=== PATIENT | female | born 1935 | race Caucasian/White ===

== ENCOUNTER 2017-06-08 10:37 | Emergency (ER) | payer MEDICARE ==
[~2017-06-08] VITALS: Ht 157.5 cm; Wt 63.6 kg
[~2017-06-08 10:37] MED LIST: ALEVE 220MG220 MG PO; ASPIRIN 32325 MG/TAB PO; BENADRYL 1%-0.11 CRE TP; CEPACOL SORE TH1 LO8 MM; CLARITIN 1010 MG/TAB PO; COLACE 100100 MG/CAP PO; COMBIVENT INH14.7 GM IH; CRANBERRY FRUI405 MG PO; EXFORGE HCT 101 TA2 PO; FOSAMAX 70MG TA70 MG PO; LEXAPRO 5MG5 MG PO; NORVASC 5MG5 MG/TAB PO; ORAJEL10% MM; PREDNISONE20 MG PO; PRILOSEC 20MG20 MG PO; PROAIR HFA0.09 MG/AC IH; RESTORIL 1515 MG/CAP PO; RT ADVAIR 528 DISKUS IH; RT SPIRIVA18 MCG IH; ULTRAM 50MG TAB50 MG PO; VITAMIN D2000 I1 PO; ZOCOR 40MG40 MG PO
[2017-06-08 12:31] LABS: BASO # 0.1 (0.0-0.2); BASO % 0.7 % (0.0-2.0); EOS # 0.1 (0.0-0.7); EOS % 1.7 % (0-4.0); GRAN # 5.9 (1.4-6.5); GRAN % 79.7 % (42.2-75.2); HEMATOCRIT 39.6 % (37.0-47.0); HEMOGLOBIN 12.5 g/dl (12.5-16.0); LYMPH # 0.6 (1.2-3.4); LYMPH % 8.5 % (20.0-51.0); MEAN CELL VOLUME 96 fl (80.0-100.0); MEAN CORPUSCULAR HEMOGLOBIN 30 pg (27.0-31.0); MEAN CORPUSCULAR HGB CONC 32 g/dl (33.0-37.0); MEAN PLATELET VOLUME 10.2 fl (7.4-10.4); MONO # 0.6 (0.1-0.6); MONO % 8.6 % (1.7-9.3); PLATELET COUNT 244 K/mm3 (130-400); RED BLOOD COUNT 4.14 M/mm3 (4.10-5.30); WHITE BLOOD COUNT 7.5 K/mm3 (4.8-10.8)
[2017-06-08 12:42] LABS: ADJUSTED CALCIUM 9.2 mg/dL (8.4-10.2); ALANINE AMINOTRANSFERASE 37 U/L (9-52); ALBUMIN 3.8 gm/dL (3.5-5.0); ALKALINE PHOSPHATASE 94 U/L (50-136); ANION GAP 12 mmol/L (7-16); BILIRUBIN,TOTAL 0.6 mg/dL (0.0-1.0); BLOOD UREA NITROGEN 7 mg/dL (7-17); CARBON DIOXIDE 32 mmol/L (22-30); CHLORIDE 97 mmol/L (98-107); CREATININE, serum 0.68 mg/dL (0.52-1.25); GLUCOSE 124 mg/dL (74-106); POTASSIUM 3.1 mmol/L (3.4-5.0); SODIUM 141 mmol/L (137-145); TOTAL PROTEIN 7.3 gm/dL (6.4-8.2)
[2017-06-08 12:44] LABS: INFLUENZA A NEGATIVE; INFLUENZA B NEGATIVE
[2017-06-08 12:57] LABS: B-TYPE NATRIURETIC PEPTIDE 143 pg/mL (0-450); TROPONIN-I < 0.012 ng/mL (0.000-0.034)
[2017-06-08] MEDS ORDERED: PREDNISONE20 MG PO (14:08)
[2017-06-08] MEDS ORDERED: ZITHROMAX 250M250 MG PO (14:08)
[2017-06-08 14:22] VITALS: BP 142/78; PULSE 88; TEMP 98
== END 2017-06-08 14:32 | disposition home or self-care (01) ==
LOC: COL.ER 10:37
PROVIDERS: Emergency Medicine
DX: J44.1 Chronic obstructive pulmonary disease with (acute) exacerbation (principal); I10 Essential (primary) hypertension; Z85.118 Personal history of other malignant neoplasm of bronchus and lung; Z87.891 Personal history of nicotine dependence; Z79.82 Long term (current) use of aspirin
CPT/HCPCS: J7512

== ENCOUNTER → 2017-11-10 | Outpatient (CLI) | payer MEDICARE ==
[~2017-11-10] VITALS: Ht 157.5 cm; Wt 64.8 kg
[2017-11-10] VITALS (11 sets, daily range): BP systolic 100–155; BP diastolic 55–85; PULSE 70–86
[~2017-11-10] MED LIST changes: +FLEXERIL5 MG PO; +ZITHROMAX 250M250 MG PO
[2017-11-10 10:00] LABS: INR 0.9 (0.8-3.0); PROTHROMBIN TIME 10.5 SECONDS (9.7-12.8)
== END ==
LOC: COL.RAD 09:17
PROVIDERS: Internal Medicine
DX: K76.89 Other specified diseases of liver (principal); J44.9 Chronic obstructive pulmonary disease, unspecified; Z85.118 Personal history of other malignant neoplasm of bronchus and lung; Z79.01 Long term (current) use of anticoagulants

== ENCOUNTER 2017-12-01 10:43 | Inpatient (IN) | payer MEDICARE ==
[~2017-12-01] VITALS: Ht 157.5 cm; Wt 64.0 kg
[2017-12-01 11:13] LABS: BASO # 0.1 (0.0-0.2); BASO % 0.5 % (0.0-2.0); EOS # 0.1 (0.0-0.7); EOS % 0.8 % (0-4.0); GRAN # 10.9 (1.4-6.5); GRAN % 83.2 % (42.2-75.2); HEMATOCRIT 35.9 % (37.0-47.0); HEMOGLOBIN 10.9 g/dl (12.5-16.0); LYMPH # 0.8 (1.2-3.4); LYMPH % 6.2 % (20.0-51.0); MEAN CELL VOLUME 92 fl (80.0-100.0); MEAN CORPUSCULAR HEMOGLOBIN 28 pg (27.0-31.0); MEAN CORPUSCULAR HGB CONC 30 g/dl (33.0-37.0); MEAN PLATELET VOLUME 9.5 fl (7.4-10.4); MONO # 1.2 (0.1-0.6); MONO % 8.9 % (1.7-9.3); PLATELET COUNT 278 K/mm3 (130-400); RED BLOOD COUNT 3.89 M/mm3 (4.10-5.30); REDCELL DISTRIBUTION WIDTH-CV 16.1 % (11.5-14.5)
[2017-12-01 11:22] LABS: ALBUMIN 3.5 gm/dL (3.5-5.0); BILIRUBIN,TOTAL 0.6 mg/dL (0.0-1.0); CALCIUM 8.9 mg/dL (8.4-10.2); CREATININE, serum 0.68 mg/dL (0.52-1.25); TOTAL PROTEIN 6.7 gm/dL (6.4-8.2)
[2017-12-01] MEDS ORDERED: VENTOLIN0.09 MG INH (11:25)
[2017-12-01 11:28] LABS: ARTERIAL BLD GAS TCO2 CT 34.8; ARTERIAL BLOOD GAS BASE EXCESS 6.9 (-2-2); ARTERIAL BLOOD GAS HCO3 33.2 meq/L (22-26); ARTERIAL BLOOD GAS PCO2 54.5 mmHg (35-45); ARTERIAL BLOOD GAS PO2 69.3 mmHg (80-100)
[2017-12-01] MEDS ORDERED: TYLENOL 325MG325 MG PO (11:29)
[2017-12-01 11:35] LABS: TROPONIN-I 0.026 ng/mL (0.000-0.034)
[2017-12-01 14:58] VITALS: BP 128/62; PULSE 94; TEMP 98.1
[2017-12-01 19:24] VITALS: BP 123/45; PULSE 91; TEMP 98.1
[2017-12-01 23:53] VITALS: BP 128/50; PULSE 88; TEMP 97.9
[2017-12-02 04:20] VITALS: BP 126/49; PULSE 84; TEMP 97.7
[2017-12-02 06:44] LABS: HEMOGLOBIN 10.1 g/dl (12.5-16.0); MEAN CELL VOLUME 93 fl (80.0-100.0); MEAN CORPUSCULAR HEMOGLOBIN 29 pg (27.0-31.0); MEAN CORPUSCULAR HGB CONC 31 g/dl (33.0-37.0); MEAN PLATELET VOLUME 10.3 fl (7.4-10.4); PLATELET COUNT 234 K/mm3 (130-400); RED BLOOD COUNT 3.54 M/mm3 (4.10-5.30); REDCELL DISTRIBUTION WIDTH-CV 15.9 % (11.5-14.5)
[2017-12-02 06:49] LABS: HEMATOCRIT 32.9 % (37.0-47.0)
[2017-12-02 06:54] LABS: CALCIUM 8.4 mg/dL (8.4-10.2); CREATININE, serum 0.63 mg/dL (0.52-1.25); POTASSIUM 3.5 mmol/L (3.4-5.0)
[2017-12-02 07:53] VITALS: BP 136/54; PULSE 91; TEMP 98.2
[2017-12-02 07:55] LABS: BAND 19 % (0-10); LYMPHOCYTE 4 % (20.0-51.0); NEUTROPHILS 76 % (42.0-75.2)
[2017-12-02 07:58] LABS: HYPOCHROMIA 3+; PLATELET ESTIMATE NORMAL (NORMAL)
[2017-12-02 11:33] VITALS: BP 113/52; PULSE 93; TEMP 98.1
[2017-12-02] MEDS ORDERED: DOXYCYCLINE 10100 MG PO (12:09)
[2017-12-02] MEDS ORDERED: PREDNISONE10 MG PO (12:10)
[2017-12-02 15:20] VITALS: BP 128/47; PULSE 98; TEMP 98.2
== END 2017-12-02 16:30 | disposition home or self-care (01) | DRG 191 ==
LOC: COL.ER 10:43 → MEDICAL 13:02
PROVIDERS: Emergency Medicine; Physician Assistant
DX: J44.1 Chronic obstructive pulmonary disease with (acute) exacerbation (principal); C78.7 Secondary malignant neoplasm of liver and intrahepatic bile duct; C34.31 Malignant neoplasm of lower lobe, right bronchus or lung; I10 Essential (primary) hypertension; Z87.891 Personal history of nicotine dependence
CPT/HCPCS: J0456; J0696; J1650; J2930; J7030; J7050

== ENCOUNTER 2018-03-04 11:00 | Outpatient (RCR) | payer MEDICARE ==
[2018-03-04] VITALS (9 sets, daily range): BP systolic 127–142; BP diastolic 45–96; PULSE 85–94; TEMP 97.2–99.2
[~2018-03-04 11:00] MED LIST changes: +DOXYCYCLINE 10100 MG PO; +PREDNISONE10 MG PO; +TYLENOL 325MG325 MG PO; +VENTOLIN0.09 MG INH; +VITAMIN D32000 I1 PO
[2018-03-04 11:11] LABS: MEAN CELL VOLUME 97 fl (80.0-100.0); MEAN CORPUSCULAR HGB CONC 29 g/dl (33.0-37.0); PLATELET COUNT 216 K/mm3 (130-400); RED BLOOD COUNT 2.88 M/mm3 (4.10-5.30)
[2018-03-04 11:15] LABS: HEMATOCRIT 27.9 % (37.0-47.0); HEMOGLOBIN 8.2 g/dl (12.5-16.0); MEAN CORPUSCULAR HEMOGLOBIN 28 pg (27.0-31.0)
[2018-03-04 11:17] LABS: ALBUMIN 3.3 gm/dL (3.5-5.0); BILIRUBIN,TOTAL 0.5 mg/dL (0.0-1.0); CALCIUM 8.6 mg/dL (8.4-10.2); CREATININE, serum 0.75 mg/dL (0.52-1.25); MAGNESIUM 1.5 mg/dL (1.6-2.3); POTASSIUM 4.5 mmol/L (3.4-5.0); TOTAL PROTEIN 6.2 gm/dL (6.4-8.2)
[2018-03-04 11:59] LABS: BAND 6 % (0-10); LYMPHOCYTE 11 % (20.0-51.0); NEUTROPHILS 82 % (42.0-75.2)
== END 2018-03-04 16:33 | disposition home or self-care (01) ==
LOC: EUO 11:00
PROVIDERS: Internal Medicine
DX: C34.12 Malignant neoplasm of upper lobe, left bronchus or lung (principal); C78.7 Secondary malignant neoplasm of liver and intrahepatic bile duct; C79.51 Secondary malignant neoplasm of bone
CPT/HCPCS: J7050; P9016

== ENCOUNTER 2018-03-15 13:41 | Emergency (ER) | payer MEDICARE ==
[~2018-03-15] VITALS: Ht 157.5 cm; Wt 63.6 kg
[2018-03-15 13:45] VITALS: TEMP 97.9
[2018-03-15 14:25] LABS: BASO # 0.1 (0.0-0.2); BASO % 1.2 % (0.0-2.0); EOS # 0.1 (0.0-0.7); EOS % 1.7 % (0-4.0); GRAN # 2.7 (1.4-6.5); GRAN % 67.8 % (42.2-75.2); LYMPH # 0.6 (1.2-3.4); LYMPH % 15.4 % (20.0-51.0); MEAN CELL VOLUME 94 fl (80.0-100.0); MEAN CORPUSCULAR HGB CONC 30 g/dl (33.0-37.0); MEAN PLATELET VOLUME 11.1 fl (7.4-10.4); MONO # 0.5 (0.1-0.6); MONO % 13.2 % (1.7-9.3); PLATELET COUNT 235 K/mm3 (130-400); RED BLOOD COUNT 3.52 M/mm3 (4.10-5.30)
[2018-03-15 14:39] LABS: ALBUMIN 3.4 gm/dL (3.5-5.0); BILIRUBIN,TOTAL 0.5 mg/dL (0.0-1.0); C-REACTIVE PROTEIN 2.3 mg/dL (0.0-0.9); CALCIUM 8.3 mg/dL (8.4-10.2); CREATININE, serum 0.6 mg/dL (0.52-1.25); POTASSIUM 4.3 mmol/L (3.4-5.0); TOTAL PROTEIN 6.5 gm/dL (6.4-8.2)
[2018-03-15 14:49] LABS: HEMATOCRIT 33.2 % (37.0-47.0); HEMOGLOBIN 9.9 g/dl (12.5-16.0); MEAN CORPUSCULAR HEMOGLOBIN 28 pg (27.0-31.0)
[2018-03-15 16:05] LABS: COLLECTION METHOD CLEAN CATCH
[2018-03-15 16:17] LABS: MUCOUS Present /lpf; PH 5 (5-8); SQUAMOUS EPITHELIAL None Seen /hpf; URINE APPEARANCE Hazy; URINE BACTERIA Moderate /hpf; URINE BILIRUBIN Negative (NEGATIVE); URINE BLOOD Negative (NEGATIVE); URINE COLOR Yellow; URINE GLUCOSE Negative (NEGATIVE); URINE KETONE Negative (NEGATIVE); URINE LEUKOCYTE ESTERASE 3+ (NEGATIVE); URINE NITRATE Positive (NEGATIVE); URINE PROTEIN(semi-quant) Negative (NEGATIVE); URINE RBC 0-2 /hpf; URINE UROBILINOGEN Negative (NEGATIVE)
[2018-03-15] MEDS ORDERED: MACROBID 1100 MG/CAP PO (16:32)
[2018-03-15 17:17] VITALS: BP 142/59; PULSE 82
== END 2018-03-15 17:19 | disposition home or self-care (01) ==
LOC: COL.ER 13:41
PROVIDERS: Emergency Medicine
DX: N39.0 Urinary tract infection, site not specified (principal); F41.9 Anxiety disorder, unspecified; I10 Essential (primary) hypertension; J44.9 Chronic obstructive pulmonary disease, unspecified; K21.9 Gastro-esophageal reflux disease without esophagitis; Z90.49 Acquired absence of other specified parts of digestive tract; Z90.710 Acquired absence of both cervix and uterus; Z87.891 Personal history of nicotine dependence; Z98.890 Other specified postprocedural states; Z79.82 Long term (current) use of aspirin; Z79.51 Long term (current) use of inhaled steroids; Z85.118 Personal history of other malignant neoplasm of bronchus and lung
CPT/HCPCS: J7030; Q9967

== ENCOUNTER 2018-04-30 10:23 | Outpatient (RCR) | payer MEDICARE ==
[2018-04-30] VITALS (8 sets, daily range): BP systolic 93–137; BP diastolic 9–53; PULSE 77–96; TEMP 97.4–98.3
[~2018-04-30 10:23] MED LIST changes: +MACROBID 1100 MG/CAP PO
== END 2018-04-30 20:50 ==
LOC: EUO 10:23 → MEDICAL 10:24 → EUO 11:00
DX: C34.12 Malignant neoplasm of upper lobe, left bronchus or lung (principal); C78.7 Secondary malignant neoplasm of liver and intrahepatic bile duct; C79.51 Secondary malignant neoplasm of bone
CPT/HCPCS: OP; J7050; P9016

== ENCOUNTER 2018-05-05 17:12 | Inpatient (IN) | payer MEDICARE ==
[~2018-05-05] VITALS: Ht 157.5 cm; Wt 67.7 kg
[2018-05-05] VITALS (199 sets, daily range): BP systolic 136; BP diastolic 68; PULSE 129; TEMP 97.8; O2SAT 81–100
[2018-05-05 17:37] LABS: BASO # 0.1 (0.0-0.2); BASO % 0.7 % (0.0-2.0); EOS # 0.1 (0.0-0.7); EOS % 0.9 % (0-4.0); GRAN # 6.8 (1.4-6.5); GRAN % 90.6 % (42.2-75.2); HEMOGLOBIN 10.6 g/dl (12.5-16.0); LYMPH # 0.4 (1.2-3.4); LYMPH % 5.3 % (20.0-51.0); MEAN CELL VOLUME 98 fl (80.0-100.0); MEAN CORPUSCULAR HEMOGLOBIN 30 pg (27.0-31.0); MEAN CORPUSCULAR HGB CONC 31 g/dl (33.0-37.0); MEAN PLATELET VOLUME 9.7 fl (7.4-10.4); MONO # 0.2 (0.1-0.6); MONO % 2.4 % (1.7-9.3); PLATELET COUNT 182 K/mm3 (130-400); RED BLOOD COUNT 3.57 M/mm3 (4.10-5.30); REDCELL DISTRIBUTION WIDTH-CV 19.7 % (11.5-14.5)
[2018-05-05 17:38] LABS: HEMATOCRIT 34.8 % (37.0-47.0)
[2018-05-05] MEDS ORDERED: DECADRON 4MG TAB4 MG PO (17:39)
[2018-05-05] MEDS ORDERED: LEXAPRO 10MG10 MG PO (17:41)
[2018-05-05] MEDS ORDERED: LASIX 20MG TABL20 MG PO (17:42)
[2018-05-05] MEDS ORDERED: FOLIC ACID 11 MG/TA1 PO (17:42)
[2018-05-05] MEDS ORDERED: KLOR-CON M2020 MEQ PO (17:43)
[2018-05-05] MEDS ORDERED: MAG-OX 400400 MG/TAB PO (17:44)
[2018-05-05] MEDS ORDERED: ZOCOR 40MG40 MG PO (17:45)
[2018-05-05] MEDS ORDERED: REGLAN 5MG T5 MG/TAB PO (17:45)
[2018-05-05 17:47] LABS: ALBUMIN 3.3 gm/dL (3.5-5.0); BILIRUBIN,TOTAL 0.6 mg/dL (0.0-1.0); CALCIUM 8.4 mg/dL (8.4-10.2); POTASSIUM 5.3 mmol/L (3.4-5.0); TOTAL PROTEIN 6.1 gm/dL (6.4-8.2)
[2018-05-05] MEDS ORDERED: THEO-24 30300 MG/CAP PO (17:47)
[2018-05-05 18:02] LABS: INR 1.1 (0.8-3.0); PROTHROMBIN TIME 12.2 SECONDS (9.7-12.8)
[2018-05-05 19:06] LABS: COLLECTION METHOD CLEAN CATCH
[2018-05-05 19:31] LABS: HYALINE CAST >12 /lpf; MUCOUS Present /lpf; PH 5 (5-8); URINE APPEARANCE Hazy; URINE BACTERIA None Seen /hpf; URINE BILIRUBIN Negative (NEGATIVE); URINE BLOOD Negative (NEGATIVE); URINE COLOR Yellow; URINE GLUCOSE Negative (NEGATIVE); URINE KETONE Negative (NEGATIVE); URINE LEUKOCYTE ESTERASE Negative (NEGATIVE); URINE NITRATE Negative (NEGATIVE); URINE PROTEIN(semi-quant) Negative (NEGATIVE); URINE RBC None Seen /hpf; URINE UROBILINOGEN Negative (NEGATIVE)
[2018-05-05] MEDS ORDERED: REGLAN 10MG10 MG/TAB PO (21:30)
[2018-05-05] MEDS ORDERED: BREO IH (21:33)
[2018-05-05] MEDS ORDERED: NORCO 325 MG-51 TAB PO (21:33)
[2018-05-05] MEDS ORDERED: XANAX .25M0.25 MG/TA PO (21:34)
[2018-05-06] VITALS (690 sets, daily range): BP systolic 99–149; BP diastolic 43–70; PULSE 81–124; TEMP 97.3–98.5; O2SAT 82–100
[2018-05-06] MEDS ORDERED: Sinex NS (03:26)
[2018-05-06 04:06] LABS: MEAN CELL VOLUME 99 fl (80.0-100.0); MEAN CORPUSCULAR HGB CONC 30 g/dl (33.0-37.0); MEAN PLATELET VOLUME 10.1 fl (7.4-10.4); PLATELET COUNT 175 K/mm3 (130-400); RED BLOOD COUNT 3.23 M/mm3 (4.10-5.30); REDCELL DISTRIBUTION WIDTH-CV 19.6 % (11.5-14.5)
[2018-05-06 04:11] LABS: HEMATOCRIT 31.8 % (37.0-47.0); HEMOGLOBIN 9.5 g/dl (12.5-16.0); MEAN CORPUSCULAR HEMOGLOBIN 29 pg (27.0-31.0)
[2018-05-06 04:16] LABS: CALCIUM 7.8 mg/dL (8.4-10.2); CREATININE, serum 1.63 mg/dL (0.52-1.25); POTASSIUM 5.5 mmol/L (3.4-5.0)
[2018-05-06 04:41] LABS: BAND 32 % (0-10); LYMPHOCYTE 2 % (20.0-51.0); NEUTROPHILS 65 % (42.0-75.2)
[2018-05-06 04:42] LABS: ANISOCYTOSIS 1+; HYPOCHROMIA 2+; PLATELET ESTIMATE NORMAL (NORMAL); POIKILOCYTOSIS 1+
[2018-05-06 04:43] LABS: OVALOCYTES 2+; POLYCHROMASIA 2+
[2018-05-06 10:44] LABS: ARTERIAL BLD GAS O2 SATURATION 95.1 % (92-100); ARTERIAL BLD GAS TCO2 CT 25.4; ARTERIAL BLOOD GAS BASE EXCESS -1.6 (-2-2); ARTERIAL BLOOD GAS HCO3 24.1 meq/L (22-26); ARTERIAL BLOOD GAS PCO2 44.6 mmHg (35-45); ARTERIAL BLOOD GAS pH 7.35 (7.35-7.45)
[2018-05-06 11:08] LABS: CALCIUM 7.9 mg/dL (8.4-10.2); CREATININE, serum 1.43 mg/dL (0.52-1.25); POTASSIUM 5.5 mmol/L (3.4-5.0)
[2018-05-07 03:51] VITALS: BP 132/53; PULSE 128; TEMP 97.1
[2018-05-07 07:06] LABS: MEAN CELL VOLUME 97 fl (80.0-100.0); MEAN CORPUSCULAR HGB CONC 30 g/dl (33.0-37.0); MEAN PLATELET VOLUME 9.7 fl (7.4-10.4); PLATELET COUNT 199 K/mm3 (130-400); RED BLOOD COUNT 3.07 M/mm3 (4.10-5.30); REDCELL DISTRIBUTION WIDTH-CV 19.7 % (11.5-14.5)
[2018-05-07 07:13] LABS: HEMATOCRIT 29.8 % (37.0-47.0); MEAN CORPUSCULAR HEMOGLOBIN 29 pg (27.0-31.0)
[2018-05-07 08:21] VITALS: BP 111/60; PULSE 95; TEMP 98.2
[2018-05-07 09:38] LABS: ALBUMIN 2.7 gm/dL (3.5-5.0); BILIRUBIN,TOTAL 0.7 mg/dL (0.0-1.0); CALCIUM 7.9 mg/dL (8.4-10.2); CREATININE, serum 1.32 mg/dL (0.52-1.25); TOTAL PROTEIN 5.4 gm/dL (6.4-8.2)
[2018-05-07 12:42] VITALS: BP 136/44; PULSE 123; TEMP 98.4
[2018-05-07 16:54] VITALS: BP 123/30; PULSE 70; TEMP 98.2
[2018-05-07 20:01] VITALS: BP 122/46; PULSE 103; TEMP 98
[2018-05-07 23:24] VITALS: BP 142/45; PULSE 100; TEMP 98.1
[2018-05-08 02:20] VITALS: BP 119/38; PULSE 94
[2018-05-08 04:40] VITALS: BP 130/53
[2018-05-08 06:26] LABS: BASO % 0.8 % (0.0-2.0); GRAN # 4.1 (1.4-6.5); GRAN % 86.3 % (42.2-75.2); LYMPH # 0.4 (1.2-3.4); LYMPH % 7.7 % (20.0-51.0); MEAN CELL VOLUME 98 fl (80.0-100.0); MEAN CORPUSCULAR HGB CONC 30 g/dl (33.0-37.0); MEAN PLATELET VOLUME 9.7 fl (7.4-10.4); MONO # 0.2 (0.1-0.6); MONO % 4.4 % (1.7-9.3); PLATELET COUNT 186 K/mm3 (130-400); RED BLOOD COUNT 3.15 M/mm3 (4.10-5.30); REDCELL DISTRIBUTION WIDTH-CV 19.5 % (11.5-14.5)
[2018-05-08 06:33] LABS: ALBUMIN 2.7 gm/dL (3.5-5.0); BILIRUBIN,TOTAL 0.8 mg/dL (0.0-1.0); CALCIUM 8.4 mg/dL (8.4-10.2); CREATININE, serum 1.26 mg/dL (0.52-1.25); POTASSIUM 4.8 mmol/L (3.4-5.0); TOTAL PROTEIN 5.3 gm/dL (6.4-8.2)
[2018-05-08 06:34] LABS: HEMATOCRIT 30.9 % (37.0-47.0); HEMOGLOBIN 9.2 g/dl (12.5-16.0); MEAN CORPUSCULAR HEMOGLOBIN 29 pg (27.0-31.0)
[2018-05-08 07:04] LABS: TSH w REFLEX 31.9 uIU/mL (0.465-4.680)
[2018-05-08 07:16] VITALS: BP 142/43; PULSE 98; TEMP 98.2
[2018-05-08 11:50] VITALS: BP 114/36; PULSE 94; TEMP 98.5
[2018-05-08 16:12] VITALS: BP 135/45; PULSE 91; TEMP 98.2
[2018-05-08 20:12] VITALS: BP 121/59; PULSE 92; TEMP 98.3
[2018-05-09] VITALS (7 sets, daily range): BP systolic 118–138; BP diastolic 31–87; PULSE 86–96; TEMP 97.6–99.2
[2018-05-09 07:46] LABS: HEMATOCRIT 29.6 % (37.0-47.0); HEMOGLOBIN 8.9 g/dl (12.5-16.0); MEAN CELL VOLUME 99 fl (80.0-100.0); MEAN CORPUSCULAR HEMOGLOBIN 30 pg (27.0-31.0); MEAN CORPUSCULAR HGB CONC 30 g/dl (33.0-37.0); PLATELET COUNT 149 K/mm3 (130-400); REDCELL DISTRIBUTION WIDTH-CV 19.7 % (11.5-14.5)
[2018-05-09 08:14] LABS: CALCIUM 8.5 mg/dL (8.4-10.2); CREATININE, serum 1.12 mg/dL (0.52-1.25); POTASSIUM 4.7 mmol/L (3.4-5.0)
[2018-05-10 03:14] VITALS: BP 136/49; PULSE 95; TEMP 98.4
[2018-05-10 07:20] VITALS: BP 132/46; PULSE 116; TEMP 97.6
[2018-05-10 07:34] LABS: BASO % 0.5 % (0.0-2.0); EOS % 0.2 % (0-4.0); GRAN % 78.9 % (42.2-75.2); LYMPH # 0.5 (1.2-3.4); LYMPH % 7.2 % (20.0-51.0); MEAN CELL VOLUME 98 fl (80.0-100.0); MEAN CORPUSCULAR HGB CONC 30 g/dl (33.0-37.0); MEAN PLATELET VOLUME 9.9 fl (7.4-10.4); MONO # 0.6 (0.1-0.6); MONO % 9.9 % (1.7-9.3); PLATELET COUNT 144 K/mm3 (130-400); RED BLOOD COUNT 3.16 M/mm3 (4.10-5.30); REDCELL DISTRIBUTION WIDTH-CV 19.7 % (11.5-14.5)
[2018-05-10 07:43] LABS: HEMOGLOBIN 9.4 g/dl (12.5-16.0); MEAN CORPUSCULAR HEMOGLOBIN 30 pg (27.0-31.0)
[2018-05-10 07:52] LABS: ALBUMIN 2.8 gm/dL (3.5-5.0); BILIRUBIN,TOTAL 0.7 mg/dL (0.0-1.0); CALCIUM 8.9 mg/dL (8.4-10.2); CREATININE, serum 1.08 mg/dL (0.52-1.25); POTASSIUM 4.4 mmol/L (3.4-5.0); TOTAL PROTEIN 5.5 gm/dL (6.4-8.2)
[2018-05-10 07:53] LABS: HEMATOCRIT 31.1 % (37.0-47.0)
[2018-05-10 11:11] VITALS: BP 134/52; PULSE 89; TEMP 97.4
[2018-05-11] MEDS ORDERED: INCRUSE EL62.5 MCG/A IH (11:39)
[2018-05-11] MEDS ORDERED: CARDIZEM 30MG T30 MG PO (11:41)
[2018-05-11] MEDS ORDERED: ROXANOL 20MG20 MG/ML SL (11:41)
[2018-05-11] MEDS ORDERED: DULCOLAX S10 MG/SUPP RC (11:42)
[2018-05-11] MEDS ORDERED: COMPAZINE25 MG/SUPP RC (11:42)
[2018-05-11] MEDS ORDERED: ARTIFICIAL TEAR15 M7 OP (11:42)
[2018-05-11] MEDS ORDERED: FLEET ENEM1 BOT/133 RC (11:42)
[2018-05-11] MEDS ORDERED: TRANSDERM-0.5 MG/21 TD (11:43)
[2018-05-11] MEDS ORDERED: ZOFRAN ODT4 MG PO (11:43)
== END 2018-05-11 13:30 | disposition hospice, home (50) | DRG 871 ==
LOC: COL.ER 17:12 → MEDICAL 19:26 → ICU 19:26 → MEDICAL 05-06 14:38
PROVIDERS: Emergency Medicine; Hospitalist; Internal Medicine; Internal Medicine Critical Care Medicine; Nurse Practitioner Family; Physician Assistant
DX: A41.9 Sepsis, unspecified organism (principal); J96.01 Acute respiratory failure with hypoxia; J18.9 Pneumonia, unspecified organism; J90 Pleural effusion, not elsewhere classified; C34.02 Malignant neoplasm of left main bronchus; C78.7 Secondary malignant neoplasm of liver and intrahepatic bile duct; C79.51 Secondary malignant neoplasm of bone; N17.9 Acute kidney failure, unspecified; E87.2 Acidosis; C77.1 Secondary and unspecified malignant neoplasm of intrathoracic lymph nodes; J44.1 Chronic obstructive pulmonary disease with (acute) exacerbation; I47.1 Supraventricular tachycardia; J44.0 Chronic obstructive pulmonary disease with (acute) lower respiratory infection; Z51.5 Encounter for palliative care; Z66 Do not resuscitate; I10 Essential (primary) hypertension; I48.0 Paroxysmal atrial fibrillation; E78.5 Hyperlipidemia, unspecified; Z87.891 Personal history of nicotine dependence; E86.0 Dehydration; E87.5 Hyperkalemia
CPT/HCPCS: 99222; 99223-AI; 99231-AI; 99232-AI; 99233-AI; 99239; J1644; J1956; J2405; J7030; J7512; Q9967